=== PATIENT | male | born 1990 | race Caucasian/White ===

== ENCOUNTER → 2017-01-05 | Emergency (ER) | payer BC ==
[~2017-01-05] MED LIST: HYDROCOD/APAP 5/325 PREPACK#6 BTL TAKEHOME ONE; LET GEL TOPICAL 1 EA SYR TP ONE
[2017-01-05 21:39] VITALS: RESP 16
--- NOTE | 2017-01-05 22:09 | EDPHY ---
H & P HPI/ROS: CHIEF COMPLAINT: Right ankle injury HISTORY OF PRESENT ILLNESS: 26-year-old male arrives via private vehicle complaining primarily of right ankle injury. States that he was scrambling on the 2nd flatiron, lost his footing and slid down facing the rock, did not tumble. He was unable to bear weight and was carried out by friends. Sustained multiple abrasions but is only complaint is right ankle pain. He denies: Loss of consciousness, genitalia or straddle injury, nausea or vomiting, amnesia, alcohol or drug use, REVIEW OF SYSTEMS: A ten point review of systems was performed and is negative with the exception of the items mentioned in the HPI PAST MEDICAL/SURGICAL HISTORY: no anticoagulant use, no relevant medical/ surgical history SOCIAL HISTORY: denies alcohol use at time of incident PHYSICAL EXAM 1) GENERAL: Well-developed, well-nourished, alert and oriented. Appears to be in no acute distress. Answering questions appropriately. 2) HEAD: Normocephalic, atraumatic 3) HEENT: Pupils equal, round, reactive to light bilaterally. Negative Horners. Nasopharynx, oropharynx, clear. No deformity or angulation of nose. No septal hematoma. No rhinorrhea. No oral trauma. Ears bilaterally with normal tympanic membranes. No hemotympanum. No fluid or blood in the external auditory canal. No raccoon eyes. No Delgado sign. Teeth are normally aligned with no gross malocclusion, TMJ bilaterally nontender, facial bones nontender including the zygomatic arch, maxilla mandible. 4) NECK: No cervical collar is on. Posterior cervical spine is nontender, no stepoff, no effusion. Full range of motion which does not elicit any midline cervical spine pain, no posterior midline tenderness, no step-off. 5) LUNGS: Clear to auscultation bilaterally, no wheezes, no rhonchi, no retractions. Multiple abrasions to chest and abdomen with no underlying pain no crepitus. No chest wall pain. No flaring, no grunting. Moving symmetrically. No crepitus. 6) HEART: Regular rate and rhythm, 7) ABDOMEN: No guarding, no rebound, no focal tenderness, no peritoneal signs, no signs of trauma, no ecchymosis 8) MUSCULOSKELETAL: Right lower extremity: Tender to palpation medial malleolus with multiple abrasions. No puncture wounds. Compartments are soft. DP PT pulses are present and brisk, 2+. Capillary refill is brisk. Bilateral knee abrasions with full pain-free range of motion. Moving all extremities, no focal areas of tenderness, no obvious trauma. 9) BACK: No midline vertebral tenderness, no fluctuance, no step-off, no obvious trauma, no visual or palpable abnormality. 10) SKIN: [ multiple abrasion DIFFERENTIAL DIAGNOSIS: [ in no particular include but limited to fracture, dislocation, compartment syndrome Smoking Status: Never smoked Constitutional: Initial Vital Signs Temperature (C) 36.8 C 01/05/17 21:35 Heart Rate 99 01/05/17 21:35 Respiratory Rate 16 01/05/17 21:35 Blood Pressure 121/79 H 01/05/17 21:35 O2 Sat (%) 96 01/05/17 21:35 O2 Delivery Mode Room Air Allergies/Adverse Reactions: ketamine Allergy (Verified 03/20/15 16:48) Home Medications: Medication Instructions Recorded Amphet Asp and D/Amphet [Adderall] 10 mg PO DAILY 03/20/15 lamoTRIgine [Lamotrigine] 03/20/15 Hydrocodone/APAP 5/325 [[place] 1 tab PO Q6 PRN #10 tab 01/05/17 5/325 (RX)] MDM/Departure - MDM Imaging Results: Imaging Impressions Ankle X-Ray 01/05/17 21:41 Impression: Mild contour irregularity of the posterior talus with small adjacent osseous structures, which could be degenerative or posttraumatic. Images reviewed by myself Procedures: Procedure: Splint A Jackson boot splint was applied by ER medical laboratory technician. After application of the splint I returned and re-examined the patient. The splint was adequately immobilizing the joint and distal to the splint the patient's circulation and sensation were intact. Patient shows no signs of compartment syndrome. Was given orthopedic precautions. Procedure: Crutches indications for crutch use discussed with patient. Patient fitted for crutches by ER staff. Observed ambulating with crutches. I think the patient has the capacity to safely use crutches. Usual and customary crutch walking precautions provided Medications Given: Discontinued Medications Hydrocodone Bitart/Acetaminophen ([place] 5/325mg Prepack#6) 1 btl TAKEHOME EDNOW ONE Stop: 01/05/17 22:54 Last Admin: 01/05/17 23:36 Dose: 1 btl Tetracaine/Epinephrine/Lidocaine (Let Gel Topical) 1 ea TP EDNOW ONE Stop: 01/05/17 22:37 Last Admin: 01/05/17 22:37 Dose: 1 ea ED Course/Re-evaluation: This patient has been re-evaluated with serial examinations. He is noted to have multiple abrasions to his chest and extremities. His only area of underlying pain however is at the right ankle. I do not think that further imaging studies are currently indicated. Discussed his imaging results showing a possible fracture to the talus. There is no evidence of open fracture. I recommended follow up with Orthopedics. Initial and repeat exams is compartments are soft with no evidence of compartment syndrome. Given orthopedic follow-up information. He feels comfortable being discharged.Care and management in consultation with secondary supervising physician Dr Caban . - Depart Disposition: Home, Routine, Self-Care Clinical Impression: Mountain,rock/wall climb Ankle fracture, right Qualifiers: Encounter type: initial encounter Fracture type: closed Qualified Code(s): S82.891A - Other fracture of right lower leg, initial encounter for closed fracture Abrasion of chest Qualifiers: Encounter type: initial encounter Laterality: right Qualified Code(s): S20.311A - Abrasion of right front wall of thorax, initial encounter Condition: Good Instructions: Hydrocodone/Acetaminophen (By mouth), Ankle Fracture (ED), Abrasion (ED) Additional Instructions: Return to the ER immediately if you experience discoloration, have worsening pain, numbness, tingling, or any other symptoms that concern you. If you received x-rays in the emergency department today, be advised, that ligamentous , tendon, muscular, and other non-bony injury cannot be fully ruled out. Try to keep your affected extremity elevated above the level of your chest, and keep cold packs on the affected area, for the next 48 hours. Prescriptions: Hydrocodone/APAP 5/325 [[place] 5/325 (RX)] 1 tab PO Q6 PRN #10 tab PRN Reason: Pain, Severe Referrals: Beto Nava MD [Medical Doctor] - As per Instructions
[2017-01-05 23:42] VITALS: BP 130/86; PULSE 100; TEMP 97.9; O2SAT 97
== END | disposition home or self-care (01) ==
DX: S82.891A Other fracture of right lower leg, initial encounter for closed fracture (principal); S20.311A Abrasion of right front wall of thorax, initial encounter; X58.XXXA Exposure to other specified factors, initial encounter; Y92.89 Other specified places as the place of occurrence of the external cause; Y93.31 Activity, mountain climbing, rock climbing and wall climbing
CPT/HCPCS: L4386

== ENCOUNTER 2017-11-21 13:57 | Inpatient (IN) | payer BC ==
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
[2017-11-21] MEDS ORDERED: OLANZapine DISINTEGR 5 MG TAB PO ONE (14:20)
[2017-11-21] MEDS ORDERED: LORazepam 1 MG TAB PO ONE (14:20)
[2017-11-21] MEDS ORDERED: OLANZapine DISINTEGR 5 MG TAB ONE (14:41)
[2017-11-21 16:25] LABS: PLATELET COUNT 262 10^3/uL (150-400)
[2017-11-21] MEDS ORDERED: OLANZapine 5 MG TAB ONE (22:49)
[2017-11-21] MEDS ORDERED: OLANZapine 5 MG TAB PO ONE (23:03)
[2017-11-22] MEDS ORDERED: LORazepam 1 MG TAB PO ONE (00:59)
[2017-11-22] MEDS ORDERED: MAG HYDROX/AL HYDROX/SIMETH 30 ML UDCUP PO PRN (11:58)
[2017-11-22] MEDS ORDERED: MAGNESIUM HYDROXIDE 30 ML UDCUP PO PRN (11:58)
[2017-11-22] MEDS ORDERED: OLANZapine DISINTEGR 10 MG TAB PO PRN ×2 (11:58→13:21)
[2017-11-22] MEDS ORDERED: ACETAMINOPHEN 325 MG TAB PO PRN (11:58)
[2017-11-22] MEDS ORDERED: LORazepam 2 MG/ML INJ IM PRN ×2 (12:07→14:37)
[2017-11-22] MEDS ORDERED: ZIPRASIDONE MESYLATE 20 MG VIAL IM PRN (12:09)
[2017-11-22] MEDS ORDERED: LORazepam 1 MG TAB PO SCH (12:15)
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
[2017-11-22] MEDS ORDERED: OLANZapine 10 MG/2 ML VIAL IM PRN (13:21)
[2017-11-22] MEDS ORDERED: LORazepam 1 MG/0.5 ML UDSYR PO ONE (14:15)
--- NOTE | 2017-11-22 14:41 | SOAPPROG ---
MARLA Progress Note Assessment/Plan: Assessment: ADDENDUM TO DICTATED ADMISSION PSYCHIATRIC EVALUATION Bipolar Disorder type I manic severe with psychotic features Patient initially refused Ativan 1mg and Geodon 20mg PO. Later reported he was willing to take liquid or dissolving tablets. Refused Zydis 10mg SL. Later agreed to take 2mg Liquid Ativan. Later took Geodon 20mg PO. Plan: EMED DAY ONE Geodon 20mg PO BID, if refused Geodon 10mg IM Ativan 2mg PO/IM BID and PRN Q4 severe agitation Olanzapine 10mg SL/IM PRN severe agitation 11/22/17 14:40 Objective: Vital Signs Temp Pulse Resp BP Pulse Ox 36.9 C 78 18 133/84 H 96 11/22/17 08:00 11/22/17 08:00 11/22/17 08:00 11/22/17 08:00 11/22/17 08:00 ICD10 Worksheet Patient Problems: Problems Problem Status Onset Acute psychosis Acute Bipolar illness Acute
[2017-11-22] MEDS: ZIPRASIDONE HCL 20 MG CAP PO SCH ×2 (14:43→20:03)
--- NOTE | 2017-11-22 15:04 | CPEKG ---
Heart Rate: 74 RR Interval: 811 P-R Interval: 128 QRSD Interval: 96 QT Interval: 364 QTC Interval: 404 P Leverett: 53 QRS Leverett: 90 T Wave Leverett: 66 EKG Severity - NORMAL ECG - EKG Impression: SINUS RHYTHM EKG Impression: Agree with above. Electronically Signed By: Omar Martell 22-Nov-2017 17:43:18
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
[2017-11-22] MEDS: LORazepam 0.5 MG TAB PO PRN (20:03)
[2017-11-22] MEDS: LORazepam 1 MG TAB PO SCH (20:17)
[2017-11-22] MEDS ORDERED: lamoTRIgine 25 MG TAB PO SCH (21:00)
[2017-11-23] MEDS: LORazepam 0.5 MG TAB PO PRN (02:49)
[2017-11-23] MEDS: LORazepam 1 MG TAB PO SCH ×3 (08:08→21:19)
[2017-11-23] MEDS: ZIPRASIDONE HCL 20 MG CAP PO SCH ×2 (08:08→18:51)
[2017-11-23] MEDS ORDERED: ZIPRASIDONE MESYLATE 20 MG VIAL IM PRN (09:18)
[2017-11-23] MEDS ORDERED: LORazepam 2 MG/ML INJ IM PRN (09:21)
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
[2017-11-24] MEDS: LORazepam 0.5 MG TAB PO PRN (04:25)
[2017-11-24] MEDS: ZIPRASIDONE HCL 20 MG CAP PO SCH ×2 (08:22→16:53)
[2017-11-24] MEDS: LORazepam 1 MG TAB PO SCH ×3 (08:22→20:50)
[2017-11-24] MEDS ORDERED: LORazepam 2 MG/ML INJ IM PRN (14:09)
[2017-11-24] MEDS ORDERED: ZIPRASIDONE MESYLATE 20 MG VIAL IM PRN (14:12)
--- NOTE | 2017-11-24 14:19 | SOAPPROG ---
SOAP Progress Note Assessment/Plan: Assessment: Per Dr. Crook's note: Assessment: Bipolar Disorder type I manic severe with psychotic features Patient has poor insight, reports not wanting medication or treatment, has been loud, disruptive, profane, and verbally abusive to staff and slamming doors. Patient appears more organized this AM but has continued yelling and severe irritability. Plan: Short Term Certification EMED DAY TWO Change Ativan 1mg PO/IM TID Change Ativan 1mg PO/IM severe anxiety or agitation Increase Geodon 40mg PO BID, if refused 20mg IM Education about Bipolar Disorder Monitor behavior, impulse control Assault Awareness, SP1, safety precautions Free T4 add-on lab pending Plan: 11/24/17 14:15 1. Free T4 lab sample rejected. Will need to redraw. 2. Patient has taken all PO meds. Not needed any IM meds. 3. EMED Day #3: Geodon 20mg IM BID MEAL PRN and Ativan 1mg TID IM PRN. 4. No aggressive bx or agitation. Loud and disruptive at times. 5. CCM - still manic Subjective: Met with patient, reviewed chart and d/w staff. Patient presents loud and intrusive at times. He was asked to leave group b/c he was too loud and would not lower his voice. When MD met with patient, he was cooperative and commented that MD's sweater made it "easy to find you" because the colors were so bold. Patient slept 5 hrs last night. He denies any SI/HI and denies any AH/VH. Objective: Vital Signs Temp Pulse Resp BP Pulse Ox 36.6 C 85 16 126/75 H 95 11/24/17 06:11 11/24/17 06:11 11/24/17 06:11 11/24/17 06:11 11/24/17 06:11 MSE: Affect: Elevated, irritable at times Mood: "Fine" TP: Tangential TC: Denies any SI/HI, no AH/VH, grandiose delusions Insight/Judgment: Impaired - Time Spent With Patient Time Spent With Patient: 15" - Pending Discharge Pending Discharge Within 24 Hours: No Pending Discharge Within 48 Hours: No ICD10 Worksheet Patient Problems: Problems Problem Status Onset Acute psychosis Acute Bipolar illness Acute
[2017-11-25] MEDS: LORazepam 0.5 MG TAB PO PRN ×2 (03:13→11:44)
[2017-11-25] MEDS: LORazepam 1 MG TAB PO SCH ×3 (08:23→20:50)
[2017-11-25] MEDS: ZIPRASIDONE HCL 20 MG CAP PO SCH ×2 (08:23→16:33)
--- NOTE | 2017-11-25 14:41 | SOAPPROG ---
SOAP Progress Note Assessment/Plan: Assessment: Per Dr. Crook's note: Assessment: Bipolar Disorder type I manic severe with psychotic features Patient has poor insight, reports not wanting medication or treatment, has been loud, disruptive, profane, and verbally abusive to staff and slamming doors. Patient appears more organized this AM but has continued yelling and severe irritability. Plan: Short Term Certification EMED DAY TWO Change Ativan 1mg PO/IM TID Change Ativan 1mg PO/IM severe anxiety or agitation Increase Geodon 40mg PO BID, if refused 20mg IM Education about Bipolar Disorder Monitor behavior, impulse control Assault Awareness, SP1, safety precautions Free T4 add-on lab pending Plan: 11/24/17 14:15 1. Free T4 lab sample rejected. Will need to redraw. 2. Patient has taken all PO meds. Not needed any IM meds. 3. EMED Day #3: Geodon 20mg IM BID MEAL PRN and Ativan 1mg TID IM PRN. 4. No aggressive bx or agitation. Loud and disruptive at times. 5. CCM - still manic 11/25/17 14:37 1. Patient is compliant with PO meds. 2. Patient remains loud, intrusive and belligerent, but no aggression or threats. 3. EMED Day #4 4. CCM - still manic Subjective: Met with patient, reviewed chart and d/w staff. Patient was calm and cooperative when MD spoke with him early in AM. He said he wanted to "be discharged" and had written some questions down in his composition journal. After that, patient was loud, belligerent with staff, stating "if I don't get out of here, I'm going to break a window." Shortly after this, patient's girlfriend visited for lunch and patient immediately calmed down and was observed sitting at table in dining area talking in quiet voice without any agitation or irritability. Later in afternoon, patient was demanding staff "get me a chair" in loud voice and wouldn't stop complaining about there not being "anywhere to sit and play the piano." Objective: Vital Signs Temp Pulse Resp BP Pulse Ox 36.4 C 77 14 119/67 94 11/25/17 03:35 11/25/17 03:35 11/25/17 03:35 11/25/17 03:35 11/25/17 03:35 MSE: Affect: Labile, irritable, angry, elevated Mood: Angry at times TP: Tangential, loose TC: Denies any SI/HI, no AH/VH Insight/Judgment: Impaired - Time Spent With Patient Time Spent With Patient: 20" - Pending Discharge Pending Discharge Within 24 Hours: No Pending Discharge Within 48 Hours: No ICD10 Worksheet Patient Problems: Problems Problem Status Onset Acute psychosis Acute Bipolar illness Acute
[2017-11-26] MEDS ORDERED: LORazepam 1 MG TAB PO PRN (07:28)
--- NOTE | 2017-11-26 07:31 | SOAPPROG ---
SOAP Progress Note Assessment/Plan: Assessment: Bipolar Disorder type I manic severe with psychotic features Borderline low TSH Patient is more calm and organized but is briefly irritable and yelling and tangential at times. Plan: Short Term Certification Discontinue EMEDS Change Ativan 1mg [id number] PRN anxiety or insomnia Continue Geodon 40mg PO BID Education about Bipolar Disorder Monitor behavior, impulse control, irritability Assault Awareness, SP1, safety precautions PCP follow up to recheck thyroid function after discharge Patient sees Dr. Magana for outpatient psychiatric care 11/26/17 07:31 Subjective: CC: "Tired of being here" Patient reports feeling calm but briefly yells at this M.D. that he needs to see a shipping and receiving specialist to talk about the '4th amendment' and wants to complain to [facility] about his treatment. Reports he does believe that he has bipolar disorder but disagrees that he has been manic and agitated. Agrees to continue PO Geodon and reports wanting to take Ativan PRN only due to feeling tired. Denies plans to hurt himself or others. Denies feeling stiff or having tremors. Endorses having mood swings but unable to provide details. Refuses to retry Depakote or start Tegretol. Objective: Vital Signs Temp Pulse Resp BP Pulse Ox 36.5 C 68 14 119/68 97 11/26/17 06:13 11/26/17 06:13 11/26/17 06:13 11/26/17 06:13 11/26/17 06:13 Alert thin WM. Mostly calm and cooperative. Speech RRR, loud at times. Thoughts organized but tangential. Mood 'tired of being here' Affect briefly irritable and demanding. Denies SI or HI or AH. Insight poor. Staff report patient slept 7.5 hours and cooperative with PO medications. Has been loud and irritable at times but more organized and less impulsive/agitated on unit. - Time Spent With Patient Time Spent With Patient: 20 minutes - Pending Discharge Pending Discharge Within 24 Hours: No Pending Discharge Within 48 Hours: No ICD10 Worksheet Patient Problems: Problems Problem Status Onset Acute psychosis Acute Bipolar illness Acute
[2017-11-26] MEDS: ZIPRASIDONE HCL 20 MG CAP PO SCH ×2 (08:22→17:35)
[2017-11-26] MEDS: LORazepam 1 MG TAB PO PRN ×2 (13:56→22:04)
[2017-11-27] MEDS: LORazepam 1 MG TAB PO PRN (01:26)
[2017-11-27] MEDS: ZIPRASIDONE HCL 20 MG CAP PO SCH ×2 (08:09→17:49)
[2017-11-27] MEDS ORDERED: ZIPRASIDONE HCL 20 MG CAP PO ONE ×2 (08:55→14:14)
[2017-11-27] MEDS ORDERED: ZIPRASIDONE HCL 20 MG CAP PO SCH (08:56)
--- NOTE | 2017-11-27 09:01 | SOAPPROG ---
SOAP Progress Note Assessment/Plan: Assessment: Bipolar Disorder type I manic severe with psychotic features Borderline low TSH Patient is more calm and organized but is briefly irritable and loud this morning, had reduced sleep overnight. Patient yesterday was labile and irritable with staff. Patient has improved insight today regarding diagnosis and benefits of medication and need for treatment after discharge. Plan: Short Term Certification Change Ativan 0.5mg [id number] PRN anxiety or insomnia Increase Geodon 60mg PO BID starting this AM. Education about Bipolar Disorder Monitor behavior, impulse control, irritability Assault Awareness, safety precautions Discontinue SP1 precaution PCP follow up to recheck thyroid function after discharge Patient sees Dr. Magana for outpatient psychiatric care Consider discharge tomorrow if calm and appropriate on unit today 11/27/17 09:01 Subjective: CC: "I am ready to go home" Patient reports he accepts the diagnosis of Bipolar Disorder and is willing to take Geodon after discharge and follow up with Dr. Magana. Makes statements about being 'excited for life, I am a natural leader, I should be leading the groups.' Reports goal is to return home and spend with cat and friends. Denies violent or homicidal thoughts. Denies paranoia. Denies feeling stiff or slowed. Reports not wanting to take scheduled Lorazepam but is willing to take increased Geodon dose. Reports good visits with friends yesterday. Objective: Vital Signs Temp Pulse Resp BP Pulse Ox 36.4 C 87 16 114/68 93 11/27/17 06:25 11/27/17 06:25 11/27/17 06:25 11/27/17 06:25 11/27/17 06:25 Alert WM, more appropriately clothed. Sitting quietly eating breakfast initially. Speech RRR, briefly loud, brief yelling. Mood 'I am fine to leave, I want to go home" Affect briefly irritable. Thoughts organized but briefly tangential at times. Some expansiveness and grandiosity "I am a natural leader , I should be leading the groups". Denies SI, HI, violent thoughts, AH or paranoia. Improved insight. Judgment questionable. Staff report patient slept 5 hours after 0.5mg Lorazepam. Briefly yelling at staff at times, but able to sit through art group appropriate, interacting with patients appropriately, attending meals. Several friends visited yesterday. - Time Spent With Patient Time Spent With Patient: 20 minutes - Pending Discharge Pending Discharge Within 24 Hours: Yes Pending Discharge Within 48 Hours: No Pending Discharge Date: 11/28/17 Pending Discharge Time: 11:00 ICD10 Worksheet Patient Problems: Problems Problem Status Onset Acute psychosis Acute Bipolar illness Acute
[2017-11-27] MEDS ORDERED: LORazepam 0.5 MG TAB PO PRN (10:28)
[2017-11-28 06:35] VITALS: BP 119/79
[2017-11-28] MEDS: ZIPRASIDONE HCL 20 MG CAP PO SCH (08:14)
--- NOTE | 2017-11-28 11:49 | SOAPPROG ---
SOAP Progress Note Assessment/Plan: Assessment: Bipolar Disorder type I manic severe with psychotic features Borderline low TSH Patient is more calm and organized with better insight and appropriate discharge planning. Plan: Patient is on short term certification - will terminate at discharge due to improved insight and impulse control. Meeting with friends Tu and Camille to review patients medication regimen, need for medication monitoring and support if discharged today Geodon 60mg BID Ativan 0.5mg QHS PRN insomnia PCP follow up to recheck TSH 11/28/17 11:49 Subjective: CC: "I am just fine" Patient reports tolerating Geodon without side effects except "I am not speak as fast." Denies stiffness or tremors. Denies feeling anxious or agitated. Reports he believes he has Bipolar Disorder and ADHD and is willing to take Geodon after discharge until seen by outpatient provider. Denies any violent thoughts. Denies thoughts of or suicide. Reports his friends are staying in his home and watching his cat, and will monitor him after discharge. Agrees to see Dr. Magana after discharge. Objective: Vital Signs Temp Pulse Resp BP Pulse Ox 36.3 C 76 16 119/79 97 11/28/17 06:33 11/28/17 06:33 11/28/17 06:33 11/28/17 06:33 11/28/17 06:33 Alert WM. Ambulatory, cooperative, pleasant. Speech RRR. Mood 'just fine.' Affect pleasant and calm. Thoughts organized. Denies SI or HI or AH or paranoia. Fair insight. Appropriate judgment. Staff report patient slept 7.5 hours. Yesterday AM was irritable and loud in group, but remainder of day was calm and pleasant and appropriate; compliant with medications. Took 0.5mg Ativan at 2100 for sleep. Friend Tu Drake [phone] reports he and his GF Camille [phone] will stay with patient for 1-2 weeks to monitor his medication compliance and mood stability and assist him in getting to follow up appointments. - Time Spent With Patient Time Spent With Patient: 40 minutes - Pending Discharge Pending Discharge Within 24 Hours: Yes Pending Discharge Within 48 Hours: Yes Pending Discharge Date: 11/29/17 Pending Discharge Time: 11:00 ICD10 Worksheet Patient Problems: Problems Problem Status Onset Acute psychosis Acute Bipolar illness Acute
[2017-11-28] MEDS ORDERED: ZIPRASIDONE HCL 20 MG CAP PO ONE (14:30)
--- NOTE | 2017-11-28 15:15 | BDS ---
[f rep st] BEHAVIORAL HEALTH DISCHARGE SUMMARY IDENTIFICATION: This is a 27-year-old, single white male who lives alone with a cat here in [place]. He works as a software implementation project manager for [employer] but has been on a leave of absence from work for one week prior to admission. REASON FOR ADMISSION: Please see initial psychiatric assessment from November 22, 2017. Apparently, the patient was in his front yard doing yard work with a weed whacker. He apparently was yelled at by teenagers from a nearby school. He then waved the weed whacker at the teenagers in a menacing manner and yelled at them and they called the police. The patient was brought in to the [facility] Emergency Room by police after a 'SWAT TEAM' intervention, on an M1 hold due to grave disability or due to concern he was a danger to others. In the emergency room, he did appear manic and agitated. He was given 2 mg Ativan , 10 mg of Zyprexa in the emergency department and slept overnight and then admitted to the inpatient behavioral health unit at [address] [place] [address]. HOSPITAL COURSE: The patient initially was a well-appearing, thin but muscular white male with long hair. He was ambulatory. He was psychomotor agitated. He had loud and rapid speech with flight of ideas. He had bizarre statements. He was pacing in his room and turning over the mattress, yelling at staff. He was irrational regarding the recent events and was unable to comprehend the risks versus the benefits of taking mood stabilizer medications. He repeatedly requested to not take either lithium, Zyprexa, Risperdal or Depakote as he had taken these in the past and reported side effects. He refused to take Tegretol after discussion of the blood test monitoring and medical risks. He was later agreeable to start Geodon after discussion of the risks and benefits of this medication. The patient apparently had been noncompliant with his outpatient medication regimen, which was Risperdal from his outpatient psychiatrist, Dr. Tapia. The patient was prescribed Risperdal 2 days prior to admission after appearing hypomanic in a clinic visit, but prior to that was taking Lamictal, Adderall, Intranasal Ketamine, and Pramipexole for bipolar depression and history of ADHD. The patient had a history of recurrent depressive episodes, episodic suicidal thoughts, two past hospitalizations for Bipolar [facility], no history of suicide attempts or self-harming behavior, no history of violence toward others , and no history of substance abuse. The patient was started on emergency medication because he was loud and disruptive on the unit. He initially had Ativan 1 mg 3 times a day, Geodon 20 twice a day. The Geodon was increased to 40 mg, and then later 60 mg twice a day. The patient was agreeable to take Geodon as he was given education about this medication treating bipolar disorder with psychotic features. The patient reported being either a slow metabolizer or a rapid metabolizer of medications in the past and Geodon is metabolized differently than other psychiatric medications. The patient's Ativan was tapered down to 0.5 mg at bedtime. The patient tolerated Geodon up to 60 mg twice a day without any extrapyramidal side effects or akathisia. The patient had marked improvement. He had an improved appearance, better insight. He was able to calmly attend groups, eat meals and discussed the risks and benefits of medication and was more receptive to the diagnosis of a manic episode. The patient had several friends in the community that visited him several times. They were agreeable to monitor him after discharge and reported that he was at his baseline. His friend Tu Luke and his girlfriend Camille will be staying with the patient for 1 week after discharge. We will monitor his medication compliance. Tu's phone number is [phone]. The patient had a baseline physical exam by the hospitalist. He did have a borderline low TSH of 0.3. The internal medicine physician did not find other clinical symptoms of hyperthyroidism other than a psychiatric disorder and recommended that this be rechecked within 1 month by a primary care provider. He had a normal EKG on the unit prior to starting Geodon. On the unit the patient had a marked improvement. He became more calm, more organized, had better impulse control, was able to calmly sit through groups, had better insight. He repeatedly denied any plans to hurt himself or others. He denied any plan to hurt the teenagers with a weed whacker in his yard. He said that teenagers that were passing by had repeatedly yelled at him and mocked him verbally and he was "protecting myself." The patient denied any plans to find these teenagers in the future or harm them. He denied auditory hallucinations during the course of the hospitalization. He denied suicidal ideation throughout the hospitalization. He initially made very odd or bizarre statements, but did not appear to have persistent delusions either. The patient reported no history of violence toward others or arrests for violent crimes, and denied access to a gun. CONDITION ON DISCHARGE: He is an alert white male with glasses and long hair. He is well groomed. He is in no acute distress. He is ambulatory, cooperative , and calm. He is meeting quietly with his friend who is going to stay with him upon discharge. His speech is regular rate and rhythm. His mood is "I am fine." His affect is pleasant. His thoughts are organized. He denies any thoughts to hurt himself or others. He has fair insight with appropriate judgment regarding the need to continue treatment and get followup after discharge. PROCEDURES: EKG was normal. CONSULTS: Hospitalist performed a baseline physical exam. LABS PENDING: None. LABS: BMP, CBC WNL. TSH 0.3. HgbA1c and Lipids WNL. Urine Tox and Alcohol were negative in the ED. NICOTINE USE AND ALCOHOL USE DISORDER SCREENING: patient denied alcohol and nicotine abuse ADVANCED DIRECTIVE: patient declined to have an advanced directive METABOLIC SCREENING: normal HgbA1c and Lipids. Patient was counseled about having glucose and lipids rechecked in 1 month if taking Geodon. DISCHARGE DIAGNOSES: Bipolar disorder type 1, most recent episode manic severe with psychotic features, Borderline low TSH. History of ADHD History of one concussion and right ankle injury. DISCHARGE MEDICATIONS: Geodon 60 mg twice a day with food, lorazepam 0.5 mg by mouth at bedtime. Both prescriptions were for 1 week only. DISPOSITION: The patient is leaving the unit with his friend, Tu Luke, phone number [phone], who agreed to monitor the patient's medication compliance and accompany him to his followup appointment early next week. Tu' s girlfriend Camille, phone number [phone] will also be staying with the patient to monitor his behavior and his stability and medication compliance. REFERRALS: The patient has an outpatient psychiatrist, Dr. Tapia, that he has seen for several years, has an appointment on December 04 at 9:30 a.m. The patient was referred to [facility] here in [place] to be seen within 1 month to recheck his thyroid function test. The patient reports possible thyroid disease in the past. The patient was given a copy of all of his blood test results to take to his psychiatrist and primary care provider. LEGAL STATUS: The patient was admitted on an M1 hold and then placed on short- term certification for monitoring on the unit. This will be terminated upon discharge. INFORMED CONSENT: patient was warned about the risks of Lorazepam causing disinhibition, impulsivity, and driving impairment and that this medication should only been taken at bedtime. He was counseled to avoid alcohol. He was given a handout on Geodon from [facility], and was counseled about the risk of tardive dyskinesia, metabolic syndrome, sedation, and extrapyramidal symptoms. /[id number]/MODL MTDD
== END 2017-11-28 14:47 | disposition home or self-care (01) | DRG 885 ==
LOC: EEVIPCON 13:57 → BBEH 11-22 11:00
DX: F31.2 Bipolar disorder, current episode manic severe with psychotic features (principal); Z81.8 Family history of other mental and behavioral disorders; S80.811A Abrasion, right lower leg, initial encounter; S80.812A Abrasion, left lower leg, initial encounter; E88.81 Metabolic syndrome and other insulin resistance; T43.95XA Adverse effect of unspecified psychotropic drug, initial encounter; V00.131A Fall from skateboard, initial encounter; Y93.51 Activity, roller skating (inline) and skateboarding; Z79.84 Long term (current) use of oral hypoglycemic drugs
CPT/HCPCS: 80305; G0480